=== PATIENT | male | born 1970 | race American Indian/Alaskan Native ===

== ENCOUNTER 2018-06-15 10:34 | Emergency (ER) | payer OTHER ==
[2018-06-15 10:42] VITALS: BP 184/109
[2018-06-15] MEDS ORDERED: MOTRIN PO ONE (11:17)
--- NOTE | 2018-06-15 11:22 | Emergency Department Report ---
ED Extremity Problem HPI - General Chief complaint: Extremity Injury, Lower Stated complaint: LEG PAIN Time Seen by Provider: 06/15/18 11:11 Source: patient Mode of arrival: Ambulatory Limitations: No Limitations - History of Present Illness Initial comments: Patient is a 47-year-old gentleman who is complaining of left knee pain. Patient states this been no trauma but he walks a lot for work and does do a great deal of repetitive motion where he is bending at the knees throughout the day. Patient states for the past 4 days since some increased pain at the left knee with swelling. Patient again denies any trauma or falls. Severity scale (0 -10): 7 Consistency: constant Improves with: nothing Worsens with: weight bearing, walking, exertion, palpation - Related Data Previous Rx's Medication Instructions Recorded Last Taken Type HYDROcodone/APAP 5-325 [[place] 1 each PO Q4HR PRN #12 tablet 06/15/18 Unknown Rx 5/325] Ibuprofen [Motrin] 800 mg PO Q8HR PRN #20 tablet 06/15/18 Unknown Rx Allergies Allergy/AdvReac Type Severity Reaction Status Date / Time No Known Allergies Allergy Unverified 06/15/18 10:40 ED Review of Systems ROS: Stated complaint: LEG PAIN Other details as noted in HPI Comment: All other systems reviewed and negative ED Past Medical Hx - Past Medical History Previous Medical History?: No - Surgical History Past Surgical History?: No - Social History Smoking Status: Never Smoker Substance Use Type: None - Medications Home Medications: Home Medications Medication Instructions Recorded Confirmed Last Taken Type HYDROcodone/APAP 5-325 [[place] 1 each PO Q4HR PRN #12 tablet 06/15/18 Unknown Rx 5/325] Ibuprofen [Motrin] 800 mg PO Q8HR PRN #20 tablet 06/15/18 Unknown Rx ED Physical Exam - General Limitations: No Limitations General appearance: alert, in no apparent distress - Head Head exam: Present: atraumatic, normocephalic - Eye Eye exam: Present: normal appearance - ENT ENT exam: Present: mucous membranes moist - Neck Neck exam: Present: normal inspection - Respiratory Respiratory exam: Present: normal lung sounds bilaterally. Absent: respiratory distress, wheezes, rales, rhonchi - Cardiovascular Cardiovascular Exam: Present: regular rate, normal rhythm. Absent: systolic murmur, diastolic murmur, rubs, gallop - GI/Abdominal GI/Abdominal exam: Present: soft, normal bowel sounds. Absent: tenderness - Rectal Rectal exam: Present: deferred - Extremities Exam Extremities exam: Present: normal inspection, joint swelling (patient's left knee shows moderate effusion. Anterior drawer test is negative. Patient does not have any point tenderness to the lateral or medial collateral ligament areas. Patient denies any calf tenderness). Absent: full ROM (decresed secondary to pain) - Back Exam Back exam: Present: normal inspection - Neurological Exam Neurological exam: Present: alert, oriented X3 - Psychiatric Psychiatric exam: Present: normal affect, normal mood - Skin Skin exam: Present: warm, dry, intact, normal color. Absent: rash ED Course Vital Signs 06/15/18 10:40 Temperature 98.4 F Pulse Rate 94 H Respiratory 16 Rate Blood Pressure 184/109 O2 Sat by Pulse 99 Oximetry ED Medical Decision Making - Medical Decision Making Patient instructed in Rice therapy will be sent to orthopedic surgery for follow -up. Patient given meds for symptomatic relief. Critical care attestation.: If time is entered above; I have spent that time in minutes in the direct care of this critically ill patient, excluding procedure time. ED Disposition Clinical Impression: Knee effusion, left Disposition: DC-01 TO HOME OR SELFCARE Is pt being admited?: No Does the pt Need Aspirin: No Condition: Stable Instructions: Knee Effusion (ED), RICE Therapy (ED) Referrals: CHELI DAS MD [Staff Physician] - 3-5 Days Forms: Work/School Release Form(ED) Time of Disposition: 11:22
== END 2018-06-15 11:33 | disposition home or self-care (01) ==
LOC: ED 10:34
DX: M25.462 Effusion, left knee (principal)
CPT/HCPCS: 99282